=== PATIENT | female | born 1990 | race American Indian/Alaskan Native ===

== ENCOUNTER 2016-06-06 15:22 | Emergency (ER) | payer OTHER ==
[2016-06-06 16:29] VITALS: BP 106/68
[2016-06-06] MEDS ORDERED: TYLENOL PO ONE (19:52)
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
== END 2016-06-06 21:48 | disposition home or self-care (01) ==
LOC: ED 15:22
DX: R51 Headache (principal); M54.5 Low back pain; M54.6 Pain in thoracic spine; V89.2XXA Person injured in unspecified motor-vehicle accident, traffic, initial encounter; Y93.9 Activity, unspecified; Y99.9 Unspecified external cause status; Y92.410 Unspecified street and highway as the place of occurrence of the external cause
CPT/HCPCS: 70450; 72125; 81025

== ENCOUNTER 2017-08-25 10:51 | Emergency (ER) | payer MEDICAID, OTHER ==
[2017-08-25 11:08] VITALS: BP 114/71
[2017-08-25 11:41] LABS: Bacteria,Urine 1+ /HPF (Negative); Bilirubin,Urine NEG (Negative); Blood,Urine LG (Negative); Color,Urine Yellow (Yellow); Mucus,Urine FEW /HPF; Protein,Urine <15 mg/dL mg/dL (Negative); Urobilinogen,Urine < 2.0 mg/dL (<2.0)
--- NOTE | 2017-08-25 13:07 | Emergency Department Report ---
ED Female HPI - General Chief complaint: Urogenital-Female Stated complaint: /SPOTTING Time Seen by Provider: 08/25/17 12:45 Source: patient Mode of arrival: Ambulatory Limitations: No Limitations - History of Present Illness Initial comments: This is a 27-year-old female nontoxic, well nourished in appearance, no acute signs of distress presents to the ED with c/o of vaginal spotting and vaginal bleeding x2 days. Patient stated that when she wipes she also sees blood in her urine. Patient is unaware if its vaginal bleeding or urinary bleeding. Patient also stated she is 6 weeks and has followed up with OBGYN but denies ever getting a ultrasound. Patient stated has abdominal cramping but denies any radiation of pain. Patient denies any urinary frequency or dysuria. Patient denies any nausea, vomiting, chest pain, shortness breathe, fever, chills, headache, back pain. Patient denies any allergies or PMH. MD Complaint: vaginal bleeding, other (hematuria) -: days(s) (2) Radiation: non-radiating Severity: mild Severity scale (0 -10): 3 Quality: cramping Consistency: constant Improves with: none Worsens with: none Are you Now?: Yes Last Menstrual Period: 07/08/17 EDC: 04/14/18 Associated Symptoms: vaginal bleeding, hematuria. denies: vaginal discharge, abdominal pain, nausea/vomiting, fever/chills, headaches, loss of appetite, dysuria, rash, seizure, shortness of breath, syncope, weakness - Related Data Previous Rx's Medication Instructions Recorded Last Taken Type Naproxen [Naprosyn] 500 mg PO BID #30 tablet 09/09/13 Unknown Rx methOCARBAMOL [Robaxin] 500 mg PO BID #30 tab 09/09/13 Unknown Rx traMADol [Ultram 50 MG tab] 50 mg PO Q6HR PRN #30 tablet 09/09/13 Unknown Rx Cyclobenzaprine [Flexeril] 10 mg PO TID PRN #15 tablet 06/06/16 Unknown Rx Ibuprofen [Motrin] 600 mg PO Q8H PRN #25 tablet 06/06/16 Unknown Rx Acetaminophen 500 mg PO Q8H PRN #30 tablet 08/25/17 Unknown Rx Allergies Allergy/AdvReac Type Severity Reaction Status Date / Time No Known Allergies Allergy Unverified 09/09/13 12:40 ED Review of Systems ROS: Stated complaint: /SPOTTING Other details as noted in HPI Constitutional: denies: chills, fever Eyes: denies: eye pain, eye discharge, vision change ENT: denies: ear pain, throat pain Respiratory: denies: cough, shortness of breath, wheezing Cardiovascular: denies: chest pain, palpitations Endocrine: no symptoms reported Gastrointestinal: denies: abdominal pain, nausea, diarrhea Genitourinary: hematuria. denies: urgency, dysuria, discharge Musculoskeletal: denies: back pain, joint swelling, arthralgia Skin: denies: rash, lesions Neurological: denies: headache, weakness, paresthesias Psychiatric: denies: anxiety, depression Hematological/Lymphatic: denies: easy bleeding, easy bruising ED Past Medical Hx - Past Medical History Previous Medical History?: No - Surgical History Past Surgical History?: No - Social History Smoking Status: Never Smoker Substance Use Type: None - Medications Home Medications: Home Medications Medication Instructions Recorded Confirmed Last Taken Type Naproxen [Naprosyn] 500 mg PO BID #30 tablet 09/09/13 Unknown Rx methOCARBAMOL [Robaxin] 500 mg PO BID #30 tab 09/09/13 Unknown Rx traMADol [Ultram 50 MG tab] 50 mg PO Q6HR PRN #30 tablet 09/09/13 Unknown Rx Cyclobenzaprine [Flexeril] 10 mg PO TID PRN #15 tablet 06/06/16 Unknown Rx Ibuprofen [Motrin] 600 mg PO Q8H PRN #25 tablet 06/06/16 Unknown Rx Acetaminophen 500 mg PO Q8H PRN #30 tablet 08/25/17 Unknown Rx ED Physical Exam - General Limitations: No Limitations General appearance: alert, in no apparent distress - Head Head exam: Present: atraumatic, normocephalic - Eye Eye exam: Present: normal appearance Pupils: Present: normal accommodation - ENT ENT exam: Present: normal exam, mucous membranes moist - Neck Neck exam: Present: normal inspection, full ROM. Absent: tenderness, meningismus, lymphadenopathy - Respiratory Respiratory exam: Present: normal lung sounds bilaterally. Absent: respiratory distress, wheezes, rales, rhonchi, stridor - Cardiovascular Cardiovascular Exam: Present: regular rate, normal rhythm, normal heart sounds. Absent: bradycardia, tachycardia, irregular rhythm, systolic murmur, diastolic murmur, rubs, gallop - GI/Abdominal GI/Abdominal exam: Present: soft, normal bowel sounds. Absent: distended, tenderness, guarding, rebound, rigid, diminished bowel sounds - Rectal Rectal exam: Present: deferred - External exam: Present: normal external exam, bleeding, other (gallery host Cynthia OWENS present during exam). Absent: erythema, swelling, lesions, lacerations, ecchymosis Speculum exam: Present: normal speculum exam, vaginal bleeding, other ( gallery host Cynthia RN present during exam). Absent: erythema, vaginal discharge, cervical discharge, foreign body, tissue, laceration Bi-manual exam: Present: normal bi-manual exam, other (gallery host Cynthia RN present during exam). Absent: cervical motion tendernes, adnexal tenderness, adnexal mass, uterine enlargement, uterine tenderness - Extremities Exam Extremities exam: Present: normal inspection, full ROM, normal capillary refill - Back Exam Back exam: Present: normal inspection, full ROM. Absent: tenderness, CVA tenderness (R), CVA tenderness (L), paraspinal tenderness, vertebral tenderness - Neurological Exam Neurological exam: Present: alert, oriented X3, normal gait - Psychiatric Psychiatric exam: Present: normal affect, normal mood - Skin Skin exam: Present: warm, dry, intact, normal color. Absent: rash ED Course Vital Signs 08/25/17 11:03 Temperature 97.9 F Pulse Rate 84 Respiratory 16 Rate Blood Pressure 114/71 O2 Sat by Pulse 98 Oximetry - Reevaluation(s) Reevaluation #1: 08/25/17 13:08 Patient is speaking in full sentences with no signs of distress noted. ED Medical Decision Making - Lab Data Result diagrams: 08/25/17 13:19 08/25/17 13:19 - Medical Decision Making This is a 27-year-old female presents with threatened miscarriage. Patient is stable and was examined by me. Pelvic exam with chaprone present and has a positive vaginal bleeding. Normal abdominal exam. US OB obtained and dictated by the radiologist. Quantative serum test obtained. Patient notified of the US report with no questions noted by the patient. Patient was instructed to f/o in 2 days with a ENCODING CLERK or to emergency room for a reevaluation of serum quantative test with possible ultrasound. RH factor positive. Labs within normal limits. Patient was referred to Follow-up with a ENCODING CLERK in 3-5 days or if symptoms worsen and continue return to emergency room as soon as possible. At time of discharge, the patient does not seem toxic or ill in appearance. No acute signs of distress noted. Patient agrees to discharge treatment plan of care. No further questions noted by the patient. Critical care attestation.: If time is entered above; I have spent that time in minutes in the direct care of this critically ill patient, excluding procedure time. ED Disposition Clinical Impression: Threatened miscarriage Disposition: DC- TO HOME OR SELFCARE Is pt being admited?: No Does the pt Need Aspirin: No Condition: Stable Instructions: Threatened Miscarriage (ED) Additional Instructions: Follow up in 2 days with a ENCODING CLERK or to emergency room for a reevaluation of serum quantative test with possible ultrasound or if symptoms worsen and continue return to emergency room as soon as possible. Prescriptions: Acetaminophen 500 mg PO Q8H PRN #30 tablet PRN Reason: Pain Referrals: PRIMARY [facility] [Primary Care Provider] - 3-5 Days NATALIIA GRAFF MD [Staff Physician] - 3-5 Days [facility] [Provider Group] - 3-5 Days [facility] [Outside] - 3-5 Days [facility] [Outside] - 3-5 Days Forms: Work/School Release Form(ED)
[2017-08-25 13:33] LABS: Hemoglobin 12.6 gm/dl (10.1-14.3); Mean Corpuscular HGB Conc 32 % (30-34); Mean Corpuscular Hemoglobin 27 pg (28-32); Mean Corpuscular Volume 84 fl (79-97); Platelet Count 196 K/mm3 (140-440); Red Blood Count 4.63 M/mm3 (3.65-5.03); Red Cell Distribution Width 15.9 % (13.2-15.2)
[2017-08-25 13:50] LABS: BUN/Creatinine Ratio 12; Blood Urea Nitrogen 6 mg/dL (7-17); Calcium 9.1 mg/dL (8.4-10.2); Hemolysis Index 18
--- NOTE | 2017-08-25 15:37 | Ultrasound Report ---
FINAL REPORT PROCEDURE: US OB transabdominal and TRANSVAGINAL TECHNIQUE: Real-time transabdominal and transvaginal sonography of the uterus, placenta, amniotic fluid, adnexa, and fetus was performed with image documentation. Measurements were obtained to determine age/size. M-mode Doppler was used to document heartbeat. CPT 07345 and 50506 HISTORY: vag spotting, COMPARISON: No prior studies are available for comparison. FINDINGS: ADDITIONAL GESTATION: None. CRL: 15.7 mm, which corresponds to a gestational age of: 8 weeks, 0 days. Yolk Sac: Normal. Embryonic Cardiac Activity: 158 beats per minute Gestational Sac: There is a crescentic hypoechoic area adjacent to the gestational sac, measuring 2.8 x 0.7 x 2.5 centimeters, compatible with a small area of subchorionic hemorrhage Amniotic fluid: Normal. Cervix: Normal. Right Ovary: 2.5 centimeter complex cystic structure is present Left Ovary: Normal. Estimated delivery date: 04/06/2018 No free fluid is seen IMPRESSION: 1. Single live intrauterine gestation at approximately 8 weeks, 0 days. 2. EDC by US 04/06/2018 3. Complete anatomic survey at 18-20 weeks suggested. 4. Small subchorionic hemorrhage
--- NOTE | 2017-08-25 15:37 | Ultrasound Report ---
FINAL REPORT PROCEDURE: PROCEDURE: US OB transabdominal and TRANSVAGINAL TECHNIQUE: Real-time transabdominal and transvaginal sonography of the uterus, placenta, amniotic fluid, adnexa, and fetus was performed with image documentation. Measurements were obtained to determine age/size. M-mode Doppler was used to document heartbeat. CPT 62582 and 51526 HISTORY: vag spotting, COMPARISON: No prior studies are available for comparison. FINDINGS: ADDITIONAL GESTATION: None. CRL: 15.7 mm, which corresponds to a gestational age of: 8 weeks, 0 days. Yolk Sac: Normal. Embryonic Cardiac Activity: 158 beats per minute Gestational Sac: There is a crescentic hypoechoic area adjacent to the gestational sac, measuring 2.8 x 0.7 x 2.5 centimeters, compatible with a small area of subchorionic hemorrhage Amniotic fluid: Normal. Cervix: Normal. Right Ovary: 2.5 centimeter complex cystic structure is present Left Ovary: Normal. Estimated delivery date: 04/06/2018 No free fluid is seen IMPRESSION: 1. Single live intrauterine gestation at approximately 8 weeks, 0 days. 2. EDC by US 04/06/2018 3. Complete anatomic survey at 18-20 weeks suggested. 4. Small subchorionic hemorrhage TECHNIQUE: HISTORY: COMPARISON: FINDINGS: IMPRESSION:
== END 2017-08-25 16:31 | disposition home or self-care (01) ==
LOC: ED 10:51
DX: O20.0 Threatened abortion (principal); Z3A.01 Less than 8 weeks gestation of pregnancy
CPT/HCPCS: 36415; 76801; 76817; 80048; 81001; 84702; 85027; 86900; 86901; 99284

== ENCOUNTER 2017-12-25 14:04 | Outpatient (CLI) | payer MEDICAID, OTHER ==
[2017-12-25 15:38] VITALS: BP 122/80
[2017-12-25 18:46] LABS: Hematocrit 38.4 % (30.3-42.9); Hemoglobin 12.6 gm/dl (10.1-14.3); Mean Corpuscular HGB Conc 33 % (30-34); Mean Corpuscular Hemoglobin 29 pg (28-32); Mean Corpuscular Volume 90 fl (79-97); Platelet Count 191 K/mm3 (140-440); Red Blood Count 4.29 M/mm3 (3.65-5.03); Red Cell Distribution Width 14.1 % (13.2-15.2)
--- NOTE | 2017-12-25 19:13 | Ultrasound Report ---
FINAL REPORT PROCEDURE: US OB > = 14 WEEKS FETUS TECHNIQUE: Real-time transabdominal sonography of the uterus, placenta, amniotic fluid, adnexa, and fetus was performed with image documentation. Measurements were obtained to determine age/size. M-mode Doppler was used to document heartbeat. CPT 57028 HISTORY: SEVERE LOWER ABDOMINAL PAIN AND RIGHT SIDED PAIN COMPARISON: 08/25/2017 FINDINGS: ADDITIONAL GESTATION: None. GENERAL: IUP: Single living intrauterine . Position: Cephalic Placental position: Anterior and grade 1, without previa. Small 1.7 centimeter nonspecific hypoechoic area seen within the placenta. Amniotic fluid volume: 14.7 centimeters MATERNAL: Uterus: Within normal limits. Cervical length: 3.7 cm. Internal Os: No obvious funneling is seen. Internal os is not well resolved with transabdominal technique FETUS: Heart rate and rhythm: 152 BPM, Regular. anatomic survey: Fluid containing urinary bladder, anterior abdominal wall cord insertion, kidneys, fluid containing stomach, diaphragm, four-chamber view of the heart, 3 vessel cord, visualized portions of the spine are unremarkable MEASUREMENTS: BPD: 6.4 centimeters, 25 weeks 6 days HC: 23.4 centimeters, 25 weeks 3 days AC: 20.6 centimeters, 25 weeks 1 day FL: 4.7 centimeters, 25 weeks 2 days Mean Gestational Age (composite criteria): 25 weeks 3 days Ratio biometry: Normal. Estimated Weight: 790 grams. Interval growth: Appropriate. Estimated Due Date (earliest scan): 04/06/2018 IMPRESSION: Single intrauterine gestation at 25 weeks, 3 days. Estimated due date: 04/06/2018. Normal survey with appropriate growth.
[2017-12-25] MEDS ORDERED: LACTATED RINGERS 500 ML IV ONE (19:59)
== END 2017-12-25 19:05 | disposition home or self-care (01) ==
LOC: TRG 14:04
PROVIDERS: ATTEND Obstetrics & Gynecology
DX: O47.03 False labor before 37 completed weeks of gestation, third trimester (principal); Z3A.25 25 weeks gestation of pregnancy
CPT/HCPCS: 36415; 59025; 76805; 82731; 85027

== ENCOUNTER 2018-04-14 04:40 | Inpatient (IN) | payer OTHER ==
[2018-04-14] MEDS ORDERED: AMPICILLIN/NS 2 GM/100 ML 2 GM/100 ML BAG IV ONE (06:11)
[2018-04-14] MEDS ORDERED: BRETHINE SUB-Q PRN (06:11)
[2018-04-14] MEDS ORDERED: MINERAL OIL PO PRN (06:11)
[2018-04-14] MEDS ORDERED: XYLOCAINE 2% INFILTRATI ONE (06:11)
[2018-04-14] MEDS ORDERED: SUBLIMAZE IV PRN (06:11)
--- NOTE | 2018-04-14 06:19 | History and Physical Report ---
History of Present Illness Date of examination: 04/14/18 Date of admission: 04/14/2018 Chief complaint: Contractions History of present illness: 27 year old presents to L&D with contractions every 3-4 minutes. Patient denies leaking of fluid. She reports small amount of bloody show. Patient reports active movement. LMP 07/08/2017. EDC 04/14/2018. EGA 40 weeks. Patient received care at [facility] and records are available. significant for the following: GBS positive (in urine); chlamydia (treated and GEORGE negative); genital herpes (on Valtrex suppression and denies lesions or prodromal symptoms); LSIL/susp. HSIL pap (had colpo); mycoplasma on genital culture (treated); Vitamin D deficiency (supplemented with Vitamin D). 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 denies: gonorrhea, hepatitis B, hepatitis C, HIV, syphilis Family/Genetic History: diabetes, hypertension, cancer Social history: single, lives with family, full code. denies: smoking, alcohol abuse, prescription drug abuse, IV drug use - Obstetrical History Expected Date of Delivery: 04/14/18 Actual Gestation: 40 Week(s) 0 Day(s) : 3 Para: 1 Hx # Term Pregnancies: 2 Number of Pregnancies: 0 Spontaneous Abortions: 1 Induced : 0 Number of Living Children: 1 Medications and Allergies Allergies Allergy/AdvReac Type Severity Reaction Status Date / Time No Known Allergies Allergy Verified 03/12/18 07:50 Home Medications Medication Instructions Recorded Confirmed Last Taken Type Pnv No.95/Ferrous Fum/Folic AC 1 tab PO QDAY 03/12/18 04/09/18 04/08/18 History [ Vitamins Tablet] valACYclovir [Valtrex] 1 tab PO QDAY 03/12/18 04/09/18 04/08/18 History Active Meds: Active Medications Ephedrine Sulfate (Ephedrine Sulfate) 10 mg IV Q2M PRN PRN Reason: Hypotension Fentanyl (Sublimaze) 100 mcg IV Q2H PRN PRN Reason: Labor Pain Ampicillin Sodium (Polycillin/Ns 2 Gm/100 Ml) 2 gm in 100 mls @ 100 mls/hr IV ONCE ONE; Protocol Stop: 04/14/18 07:10 Lactated Ringer's (Lactated Ringers) 1,000 mls @ 125 mls/hr IV DIRECT DON Oxytocin/Sodium Chloride (Pitocin/Ns 20 Unit/1000ml Drip) 20 units in 1,000 mls @ 125 mls/hr IV DIRECT DON Lidocaine (Xylocaine 2%) 20 ml INFILTRATI ONCE ONE Stop: 04/14/18 06:12 Mineral Oil (Mineral Oil) 30 ml PO QHS PRN PRN Reason: Constipation Terbutaline Sulfate (Brethine) 0.25 mg SUB-Q ONCE PRN PRN Reason: Hyperstimulation/Hypertonicity Review of Systems All systems: negative (contractions and bloody show) - Vital Signs Vital signs: Vital Signs Pulse BP 89 112/68 04/14/18 05:02 04/14/18 05:02 Temp Pulse Resp BP Pulse Ox 89 112/68 04/14/18 05:02 04/14/18 05:02 - Physical Exam Abdomen: Positive: normal appearance, soft. Negative: distention, tenderness, guarding, rigidity Genitourinary (Female): Positive: normal external genitalia, normal perenium. Negative: perineal/vulvar lesions (no lesions seen on careful exam upon admission) Vagina: Positive: normal moisture Uterus: Positive: enlarged. Negative: tender (size=dates) Anus/Rectum: Positive: normal perianal skin Extremities: Positive: normal, edema (mild pedal edema bilaterally). Negative: tenderness - Obstetrical FHR: category 1 Uterine Contraction Monitor Mode: External Cervical Dilatation: 4 Cervical Effacement Percentage: 70 station: -3 Uterine Contraction Pattern: Regular Uterine Contraction Intensity: Moderate Results All other labs normal. Assessment and Plan A: at 40 weeks gestation. Labor. GBS positive. HSV 2 positive, on Valtrex suppression, and without active lesions or prodromal symptoms. P: Admit for labor. EFM. GBS prophylaxis. Continue Valtrex suppression of HSV.
[2018-04-14] MEDS ORDERED: PITOCin/NS 20 UNIT/1000ML DRIP 20 UNITS/1,000 ML BAG IV SCH ×3 (07:00→21:00)
[2018-04-14 07:51] LABS: Hematocrit 39.1 % (30.3-42.9); Mean Corpuscular HGB Conc 33 % (30-34); Mean Corpuscular Volume 87 fl (79-97); Platelet Count 194 K/mm3 (140-440); Red Blood Count 4.51 M/mm3 (3.65-5.03); Red Cell Distribution Width 14.2 % (13.2-15.2)
[2018-04-14] MEDS: LACTATED RINGERS 1,000 ML IV SCH ×3 (08:42→14:44)
[2018-04-14] MEDS ORDERED: NARCAN 2 MG/2 ML IV PRN (09:42)
[2018-04-14] MEDS: fentaNYL-BUPIV 2 MCG/ML-0.125% 200 MCG/100 ML BAG EPIDURAL SCH ×2 (10:45→17:42)
[2018-04-14] MEDS ORDERED: PITOCin/NS 30 UNIT/500ML 30 UNITS/500 ML BAG IV SCH (11:00)
[2018-04-14] MEDS: AMPICILLIN/NS 1 GM/50 ML 1 GM/50 ML BAG IV SCH ×2 (11:41→16:05)
[2018-04-14] MEDS: VALTREX PO SCH (11:50)
--- NOTE | 2018-04-14 14:08 | Progress Note ---
Assessment and Plan - Patient Problems (1) 40 weeks gestation of Current Visit: Yes Status: Acute (2) Active labor at term Current Visit: Yes Status: Acute Plan to address problem: Continue current management AROM @ 13:50, light meconium, moderate amount Anticipate vaginal delivery (3) Group B streptococcal infection during Current Visit: Yes Status: Acute Plan to address problem: Continue antibiotics therapy Subjective - Subjective Date of service: 04/14/18 Principal diagnosis: IUP @ 40 weeks, Active Labor Interval history: Epidural in place Patient reports: movement normal, no new complaints Objective - Vital Signs Vital Signs: Vital Signs - 12hr 04/14/18 04/14/18 04/14/18 05:02 07:01 07:51 Temperature 97.7 F Pulse Rate 89 99 H Respiratory 17 Rate Blood Pressure 112/68 130/68 O2 Sat by Pulse Oximetry 04/14/18 04/14/18 04/14/18 08:22 09:19 09:45 Temperature Pulse Rate 96 H 86 97 H Respiratory Rate Blood Pressure 117/81 131/69 O2 Sat by Pulse 100 Oximetry 04/14/18 04/14/18 04/14/18 09:49 09:50 09:55 Temperature Pulse Rate 100 H 107 H 99 H Respiratory Rate Blood Pressure 125/73 O2 Sat by Pulse 100 100 Oximetry 04/14/18 04/14/18 04/14/18 10:00 10:10 10:17 Temperature Pulse Rate 118 H 129 H 108 H Respiratory Rate Blood Pressure 144/63 O2 Sat by Pulse 99 99 Oximetry 04/14/18 04/14/18 04/14/18 10:18 10:21 10:23 Temperature Pulse Rate 98 H 109 H 104 H Respiratory Rate Blood Pressure 125/61 O2 Sat by Pulse 99 98 Oximetry 04/14/18 04/14/18 04/14/18 10:25 10:28 10:29 Temperature Pulse Rate 105 H 102 H 96 H Respiratory Rate Blood Pressure 122/63 121/63 O2 Sat by Pulse 98 Oximetry 04/14/18 04/14/18 04/14/18 10:33 10:38 10:43 Temperature Pulse Rate 94 H 89 96 H Respiratory Rate Blood Pressure O2 Sat by Pulse 98 99 100 Oximetry 04/14/18 04/14/18 04/14/18 10:48 10:53 10:58 Temperature Pulse Rate 85 89 99 H Respiratory Rate Blood Pressure O2 Sat by Pulse 99 99 98 Oximetry 04/14/18 04/14/18 04/14/18 11:03 11:08 11:13 Temperature Pulse Rate 91 H 90 92 H Respiratory Rate Blood Pressure O2 Sat by Pulse 99 97 99 Oximetry 04/14/18 04/14/18 04/14/18 11:18 11:23 11:28 Temperature Pulse Rate 92 H 98 H 94 H Respiratory Rate Blood Pressure O2 Sat by Pulse 99 98 98 Oximetry 04/14/18 04/14/18 04/14/18 11:30 11:33 11:34 Temperature 97.8 F Pulse Rate 92 H 91 H Respiratory Rate Blood Pressure 127/60 O2 Sat by Pulse 99 Oximetry 04/14/18 04/14/18 04/14/18 11:38 11:43 11:48 Temperature Pulse Rate 118 H 94 H 100 H Respiratory Rate Blood Pressure O2 Sat by Pulse 98 98 99 Oximetry 04/14/18 04/14/18 04/14/18 11:53 11:58 12:03 Temperature Pulse Rate 94 H 96 H 87 Respiratory Rate Blood Pressure O2 Sat by Pulse 99 99 99 Oximetry 04/14/18 04/14/18 04/14/18 12:04 12:08 12:13 Temperature Pulse Rate 86 82 87 Respiratory Rate Blood Pressure 120/71 O2 Sat by Pulse 100 99 Oximetry 04/14/18 04/14/18 04/14/18 12:18 12:23 12:28 Temperature Pulse Rate 91 H 89 90 Respiratory Rate Blood Pressure O2 Sat by Pulse 99 99 99 Oximetry 04/14/18 04/14/18 04/14/18 12:33 12:34 12:38 Temperature Pulse Rate 91 H 91 H 92 H Respiratory Rate Blood Pressure 122/70 O2 Sat by Pulse 99 100 Oximetry 04/14/18 04/14/18 04/14/18 12:43 12:48 12:53 Temperature Pulse Rate 94 H 90 84 Respiratory Rate Blood Pressure O2 Sat by Pulse 99 100 99 Oximetry 04/14/18 04/14/18 04/14/18 12:58 13:03 13:08 Temperature Pulse Rate 88 88 99 H Respiratory Rate Blood Pressure O2 Sat by Pulse 99 99 99 Oximetry 04/14/18 04/14/18 04/14/18 13:13 13:18 13:23 Temperature Pulse Rate 89 95 H 94 H Respiratory Rate Blood Pressure O2 Sat by Pulse 99 100 98 Oximetry 04/14/18 04/14/18 04/14/18 13:28 13:33 13:34 Temperature Pulse Rate 95 H 98 H 95 H Respiratory Rate Blood Pressure 124/69 O2 Sat by Pulse 99 100 Oximetry 04/14/18 04/14/18 04/14/18 13:38 13:42 13:44 Temperature Pulse Rate 100 H 104 H 88 Respiratory Rate Blood Pressure O2 Sat by Pulse 100 87 100 Oximetry 04/14/18 04/14/18 13:53 13:58 Temperature Pulse Rate 96 H 98 H Respiratory Rate Blood Pressure O2 Sat by Pulse 97 100 Oximetry - Exam FHR: category 2 FHR comments: baseline 130, moderate variability, +accels, variable decels Uterine Contraction Monitor Mode: External Cervical Dilatation: 6 Cervical Effacement Percentage: 90 station: -1 Uterine Contraction Frequency (min): 2-3 Uterine Contraction Pattern: Regular - Labs Labs: Abnormal Labs 04/14/18 07:15 WBC 12.5 H Laboratory Results - last 24 hr 04/14/18 04/14/18 04/14/18 07:15 07:15 08:58 WBC 12.5 H RBC 4.51 Hgb 13.0 Hct 39.1 MCV 87 MCH 29 MCHC 33 RDW 14.2 Plt Count 194 RPR Nonreactive Blood Type B POSITIVE Antibody Screen Negative
[2018-04-14] MEDS ORDERED: BENADRYL IV ONE (16:57)
[2018-04-14] MEDS ORDERED: NACL 0.9% 1000 ML 1,000 ML VG SCH (17:00)
[2018-04-14] MEDS ORDERED: XYLOCAINE MPF 2% ONE ×2 (17:27→18:35)
--- NOTE | 2018-04-14 17:39 | Anesthesia Consultation ---
Anesthesia Consult and Med Hx - Airway Anesthetic Teeth Evaluation: Good ROM Head & Neck: Adequate Mental/Hyoid Distance: Adequate Mallampati Class: Class II Intubation Access Assessment: Probably Good - Pulmonary Exam CTA: Yes - Cardiac Exam Cardiac Exam: RRR - Pre-Operative Health Status ASA Pre-Surgery Classification: ASA2 Proposed Anesthetic Plan: Epidural, Spinal - Pulmonary Hx Asthma: No - Cardiovascular System Hx Hypertension: No - Central Nervous System Hx Seizures: No Hx Psychiatric Problems: No - Endocrine Hx Renal Disease: No Hx Hypothyroidism: No Hx Hyperthyroidism: No - Hematic Hx Anemia: No Hx Sickle Cell Disease: No - Other Systems Hx Alcohol Use: No Hx Obesity: Yes
[2018-04-14] MEDS ORDERED: REGLAN IV SCH (18:13)
[2018-04-14] MEDS ORDERED: PEPCID IV SCH (18:13)
--- NOTE | 2018-04-14 18:17 | Event Note ---
Date: 04/14/18 Received a call from Ashli OWENS that the patient is 8cm. Upon my arrival, the patient was 6-7cm and -1 station; cervical swelling noted. Patient reports pressure but denies pushing. FHR 125, moderate variability, +accels, variable/late decels. Pt in left lateral position. Oxygen in place via NR mask. IUPC inserted and amnioinfusion initiated. Dr. Benson called for bedside evaluation.
--- NOTE | 2018-04-14 18:19 | Progress Note ---
Assessment and Plan - Patient Problems (1) 40 weeks gestation of Current Visit: Yes Status: Acute (2) Active labor at term Current Visit: Yes Status: Acute (3) Failure to progress in labor Current Visit: Yes Status: Acute (4) Non-reassuring electronic monitoring tracing Current Visit: Yes Status: Acute Plan to address problem: I discussed the above findings with the patient. I told her that she needs to be delivered via C/section. The risks, benefits, and alternatives of the procedure were discussed in detail with the patient which included but not limited to risk of infection, hemorrhage requiring blood transfusion, injury to bowel or bladder and blood vessels. The patient expressed understanding, her questions were answered and she gave informed consent. Anesthesia has been notified. Keep patient NPO. Continue monitoring. Subjective - Subjective Date of service: 04/14/18 Principal diagnosis: IUP @ 40 weeks, Active Labor Interval history: Patient is a 27 year old who is at 40 weeks gestation who was admitted earlier today in active labor. AROM was performed at 10 AM with meconium fluid. Patient was later augmented with pitocin. She developed variables which recovered to baseline after pitocin was discontinued. Amnioinfusion was given and pitocin was later restarted. I was called to evaluate the patient by the highway administrative engineer for failure to dilate past 6 cm. I found the patient lying in bed and she complains of minimal discomfort with each contraction. Patient has an epidural for pain management. [place]: Q2 mins, FHT: 130's, no accelerations, minimal variability, ocacsaional variables. Cervix: 6 cm/80%/-2, adematous, caput. Patient reports: movement normal, no new complaints Objective - Vital Signs Vital Signs: Vital Signs - 12hr 04/14/18 04/14/18 04/14/18 07:01 07:51 08:22 Temperature 97.7 F Pulse Rate 99 H 96 H Respiratory 17 Rate Blood Pressure 130/68 117/81 O2 Sat by Pulse Oximetry 04/14/18 04/14/18 04/14/18 09:19 09:45 09:49 Temperature Pulse Rate 86 97 H 100 H Respiratory Rate Blood Pressure 131/69 125/73 O2 Sat by Pulse 100 Oximetry 04/14/18 04/14/18 04/14/18 09:50 09:55 10:00 Temperature Pulse Rate 107 H 99 H 118 H Respiratory Rate Blood Pressure O2 Sat by Pulse 100 100 99 Oximetry 04/14/18 04/14/18 04/14/18 10:10 10:17 10:18 Temperature Pulse Rate 129 H 108 H 98 H Respiratory Rate Blood Pressure 144/63 O2 Sat by Pulse 99 99 Oximetry 04/14/18 04/14/18 04/14/18 10:21 10:23 10:25 Temperature Pulse Rate 109 H 104 H 105 H Respiratory Rate Blood Pressure 125/61 122/63 O2 Sat by Pulse 98 Oximetry 04/14/18 04/14/18 04/14/18 10:28 10:29 10:33 Temperature Pulse Rate 102 H 96 H 94 H Respiratory Rate Blood Pressure 121/63 O2 Sat by Pulse 98 98 Oximetry 04/14/18 04/14/18 04/14/18 10:38 10:43 10:48 Temperature Pulse Rate 89 96 H 85 Respiratory Rate Blood Pressure O2 Sat by Pulse 99 100 99 Oximetry 04/14/18 04/14/18 04/14/18 10:53 10:58 11:03 Temperature Pulse Rate 89 99 H 91 H Respiratory Rate Blood Pressure O2 Sat by Pulse 99 98 99 Oximetry 04/14/18 04/14/18 04/14/18 11:08 11:13 11:18 Temperature Pulse Rate 90 92 H 92 H Respiratory Rate Blood Pressure O2 Sat by Pulse 97 99 99 Oximetry 04/14/18 04/14/18 04/14/18 11:23 11:28 11:30 Temperature 97.8 F Pulse Rate 98 H 94 H Respiratory Rate Blood Pressure O2 Sat by Pulse 98 98 Oximetry 04/14/18 04/14/18 04/14/18 11:33 11:34 11:38 Temperature Pulse Rate 92 H 91 H 118 H Respiratory Rate Blood Pressure 127/60 O2 Sat by Pulse 99 98 Oximetry 04/14/18 04/14/18 04/14/18 11:43 11:48 11:53 Temperature Pulse Rate 94 H 100 H 94 H Respiratory Rate Blood Pressure O2 Sat by Pulse 98 99 99 Oximetry 04/14/18 04/14/18 04/14/18 11:58 12:03 12:04 Temperature Pulse Rate 96 H 87 86 Respiratory Rate Blood Pressure 120/71 O2 Sat by Pulse 99 99 Oximetry 04/14/18 04/14/18 04/14/18 12:08 12:13 12:18 Temperature Pulse Rate 82 87 91 H Respiratory Rate Blood Pressure O2 Sat by Pulse 100 99 99 Oximetry 04/14/18 04/14/18 04/14/18 12:23 12:28 12:33 Temperature Pulse Rate 89 90 91 H Respiratory Rate Blood Pressure O2 Sat by Pulse 99 99 99 Oximetry 04/14/18 04/14/18 04/14/18 12:34 12:38 12:43 Temperature Pulse Rate 91 H 92 H 94 H Respiratory Rate Blood Pressure 122/70 O2 Sat by Pulse 100 99 Oximetry 04/14/18 04/14/18 04/14/18 12:48 12:53 12:58 Temperature Pulse Rate 90 84 88 Respiratory Rate Blood Pressure O2 Sat by Pulse 100 99 99 Oximetry 04/14/18 04/14/18 04/14/18 13:03 13:08 13:13 Temperature Pulse Rate 88 99 H 89 Respiratory Rate Blood Pressure O2 Sat by Pulse 99 99 99 Oximetry 04/14/18 04/14/18 04/14/18 13:18 13:23 13:28 Temperature Pulse Rate 95 H 94 H 95 H Respiratory Rate Blood Pressure O2 Sat by Pulse 100 98 99 Oximetry 04/14/18 04/14/18 04/14/18 13:33 13:34 13:38 Temperature Pulse Rate 98 H 95 H 100 H Respiratory Rate Blood Pressure 124/69 O2 Sat by Pulse 100 100 Oximetry 04/14/18 04/14/18 04/14/18 13:42 13:44 13:53 Temperature Pulse Rate 104 H 88 96 H Respiratory Rate Blood Pressure O2 Sat by Pulse 87 100 97 Oximetry 04/14/18 04/14/18 04/14/18 13:58 14:03 14:35 Temperature Pulse Rate 98 H 95 H 96 H Respiratory Rate Blood Pressure 128/73 O2 Sat by Pulse 100 100 Oximetry 04/14/18 04/14/18 04/14/18 15:00 15:05 15:21 Temperature 98.2 F Pulse Rate 117 H 102 H Respiratory 18 Rate Blood Pressure 132/81 O2 Sat by Pulse 100 Oximetry 04/14/18 04/14/18 04/14/18 15:26 15:31 15:33 Temperature Pulse Rate 100 H 87 86 Respiratory Rate Blood Pressure 110/55 O2 Sat by Pulse 100 100 Oximetry 01/10/2404/14/18 04/14/18 15:36 15:41 15:46 Temperature Pulse Rate 90 83 86 Respiratory Rate Blood Pressure O2 Sat by Pulse 100 100 100 Oximetry 04/14/18 04/14/18 04/14/18 15:51 15:56 16:01 Temperature Pulse Rate 91 H 94 H 99 H Respiratory Rate Blood Pressure O2 Sat by Pulse 100 100 100 Oximetry 04/14/18 04/14/18 04/14/18 16:03 16:06 16:11 Temperature Pulse Rate 86 92 H 85 Respiratory Rate Blood Pressure 115/68 O2 Sat by Pulse 100 100 Oximetry 04/14/18 04/14/18 04/14/18 16:16 16:21 16:26 Temperature Pulse Rate 84 98 H 86 Respiratory Rate Blood Pressure O2 Sat by Pulse 100 100 100 Oximetry 04/14/18 04/14/18 04/14/18 16:31 16:33 16:36 Temperature Pulse Rate 86 86 82 Respiratory Rate Blood Pressure 111/66 O2 Sat by Pulse 100 100 Oximetry 04/14/18 04/14/18 04/14/18 17:03 17:31 17:32 Temperature Pulse Rate 90 100 H 104 H Respiratory Rate Blood Pressure 127/75 143/79 O2 Sat by Pulse 100 Oximetry 04/14/18 04/14/18 04/14/18 17:35 17:37 17:38 Temperature Pulse Rate 99 H 95 H 93 H Respiratory Rate Blood Pressure 141/69 126/68 O2 Sat by Pulse 100 Oximetry 04/14/18 04/14/18 04/14/18 17:41 17:42 17:44 Temperature Pulse Rate 96 H 95 H 96 H Respiratory Rate Blood Pressure 116/72 117/67 O2 Sat by Pulse 100 Oximetry 04/14/18 04/14/18 04/14/18 17:45 17:47 17:52 Temperature 97.7 F Pulse Rate 98 H 111 H Respiratory 17 Rate Blood Pressure O2 Sat by Pulse 100 100 Oximetry 04/14/18 04/14/18 04/14/18 17:57 18:02 18:07 Temperature Pulse Rate 98 H 103 H 107 H Respiratory Rate Blood Pressure O2 Sat by Pulse 100 100 100 Oximetry 04/14/18 18:12 Temperature Pulse Rate 104 H Respiratory Rate Blood Pressure O2 Sat by Pulse 100 Oximetry - Exam Cardiovascular: Normal S1, Normal S2 Lungs: Clear to auscultation Vulva: both: normal FHR: category 2 Uterine Contraction Monitor Mode: Internal Cervical Dilatation: 6 Cervical Effacement Percentage: 80 station: -2 Uterine Contraction Pattern: Regular Uterine Contraction Intensity: Strong/Firm Deep Tendon Reflex Grade: Normal +2 - Labs Labs: Abnormal Labs 04/14/18 07:15 WBC 12.5 H Laboratory Results - last 24 hr 04/14/18 04/14/18 04/14/18 07:15 07:15 08:58 WBC 12.5 H RBC 4.51 Hgb 13.0 Hct 39.1 MCV 87 MCH 29 MCHC 33 RDW 14.2 Plt Count 194 RPR Nonreactive Blood Type B POSITIVE Antibody Screen Negative - Results US- obstetric: report reviewed
[2018-04-14] MEDS ORDERED: PEPCID IV ONE (18:21)
[2018-04-14] MEDS ORDERED: SUBLIMAZE ONE ×2 (18:35→20:05)
[2018-04-14] MEDS ORDERED: ZOFRAN ONE (18:35)
[2018-04-14] MEDS ORDERED: ASTRAMORPH PF 10MG/10ML ONE (18:36)
[2018-04-14] MEDS ORDERED: BICITRA PO SCH (19:00)
[2018-04-14] MEDS ORDERED: LACTATED RINGERS 1,000 ML IV SCH (19:00)
[2018-04-14] MEDS ORDERED: ANCEF/STERILE WATER 2 GM/20 ML 2 GM/20 ML SYRINGE IV NR (19:00)
[2018-04-14] MEDS ORDERED: WATER FOR IRRIG STERILE IR ONE (19:15)
[2018-04-14] MEDS ORDERED: NACL 0.9% IR ONE (19:15)
[2018-04-14] MEDS ORDERED: METHERGINE IM ONE ×2 (19:38→23:25)
[2018-04-14] MEDS ORDERED: HEMABATE IM ONE ×2 (19:49→23:25)
[2018-04-14] MEDS ORDERED: KETALAR ONE (20:26)
[2018-04-14] MEDS ORDERED: ZOFRAN IV PRN (20:40)
[2018-04-14] MEDS ORDERED: SENOKOT PO PRN (20:40)
[2018-04-14] MEDS ORDERED: MYLICON PO PRN (20:40)
[2018-04-14] MEDS ORDERED: TYLENOL PO PRN (20:40)
[2018-04-14] MEDS ORDERED: TORADOL IV PRN (20:40)
[2018-04-14] MEDS ORDERED: TUCKS PAD TP PRN (20:40)
[2018-04-14] MEDS ORDERED: NARCAN 0.4 MG/1 ML IV PRN (20:40)
[2018-04-14] MEDS ORDERED: MORPHINE IV PRN ×2 (20:40)
[2018-04-14] MEDS ORDERED: LANSINOH TP PRN (20:40)
[2018-04-14] MEDS ORDERED: MILK OF MAGNESIA PO PRN (20:40)
--- NOTE | 2018-04-14 20:43 | Operative Report ---
Operative Report Operative Report: Preoperative diagnosis 1. SIUP at 40 weeks gestation in active labor. 2. Nonreassuring tracing. 3. Failure to dilate and descend. 4. Meconium amniotic fluid. Postoperative diagnosis: Same. Procedure: Primary low-transverse section. Surgeon: Dr. Benson Cadd Manager: none Anesthesia: epidural. IVF: RL 1400 cc. EBL: 900 cc. Urine: 200 cc clear. Complications: Intraoperative uterine atony responsive to IV Pitocin, IM methergine, and IM Hemabate. Intraoperative findings: 1. A male found in a direct occipito-posterior position, tight nuchal cord 1, delivered at 7:31 PM, Apgars of 8 at 1 minute and 9 at 5 minutes, weight 7 lbs 8 oz. 2. Normal fallopian tubes and ovaries bilaterally. Procedure details: Risks, benefits, and alternatives of the procedure were discussed in detail with the patient which included but not limited to the risk of infection, hemorrhage requiring blood transfusion, injury to the bowel or bladder and blood vessels. The patient expressed understanding, her questions were answered, and she gave informed consent. The patient was taken to the operating room with an IV fluid infusing Ringers lactate. In the operating room, she was placed in a dorsal supine position with a leftward tilt. She was loaded with epidural anesthesia. Looney catheter in Venodyne boots were placed. The abdomen was washed and she was prepared and draped in usual sterile fashion. After confirming adequate epidural anesthesia, a Pfannenstiel skin incision was made in the lower abdomen about 2 cm above the pubic symphysis using the scalpel. This incision was carried down to the underlying fascia using the Bovie. The fascia was opened bilaterally in a curvi linear fashion using the Bovie. 2 straight Kocker clamps were used to grasp the upper edge of the fascia from which the underlying rectus abdominis muscles was dissected off using the Bovie. A similar procedure was done with the lower edge of the fascia to dissect the underlying rectus abdominis muscle. The muscle was bluntly from the midline by pulling. The parietal peritoneum was g rasped with 2 hemostat clamps and entered sharply using Metzenbaum scissors. A quick survey of the anatomy revealed a gravid uterus, normal fallopian tubes and ovaries bilaterally. A bladder flap was created. Willie'O retractor was placed in the incision for proper visualization. A low transverse incision was made in the lower uterine segment using the scalpel and extended bilaterally in a cur vilinear fashion using bandage scissors. There was scant amount of meconium amniotic fluid as the membranes have been ruptured during the labor. The infant was found in a direst occipito-posterior position, the head was flexed and delivered atraumatically followed by the delivery of the shoulders and the rest of the body at 7:31 PM. There was tight nuchal cord 1 with compression. The cord was clamped 2 and cut and the infant was handed off to the waiting manager electronic. The was a male, Apgars were 9 at 1 minute and 9 at 5 minutes, weight was 7 pounds and 8 ounces. Cord blood was collected. The placenta was delivered manually and it was complete with a three-vessel cord. The uterine cavity was cleaned of clots and debris using dry lap sponges. There was uterine atony responsive to IV pitocin, IM methergine, IM hemabate. The uterine incision was repaired in a running locked fashion using 0 Vicryl sutures. A second layer of imbrication was placed. The gutters were cleaned of clots and debris using dry lap sponges. After confirming adequate hemostasis, the instruments were removed from the abdominal cavity. The rectus muscle was reapproximated in an interrupted fashion using 0 Vicryl sutures. The fascia was closed in a running fashion using 0 Vicryl sutures. The skin was closed with alan. Sterile dressing was placed. The counts of laps, needles, sponges, and instruments were correct 2. The patient tolerated the procedure well, she was taken to the recovery room in a stable condition.
[2018-04-14] MEDS ORDERED: SODIUM CHLORIDE FLUSH SYRINGE 10 ML IV PRN (21:00)
[2018-04-14] MEDS: TORADOL IV PRN (23:30)
--- NOTE | 2018-04-15 04:27 | Post Anesthesia Evaluation ---
- Post Anesthesia Evaluation Patient Participated: Yes Airway Patent: Yes Stable Respiratory Function: Yes Nausea/Vomiting: No Temp > 96.8F: Yes Pain Manageable: Yes Adequeate Hydration: Yes Anesthesia Complications: No Block Receding Appropriately: Yes Patient on Ventilator: Yes
[2018-04-15] MEDS: TORADOL IV PRN (06:16)
[2018-04-15 09:21] LABS: Hematocrit 28.5 % (30.3-42.9); Hemoglobin 9.3 gm/dl (10.1-14.3)
--- NOTE | 2018-04-15 10:08 | Progress Note ---
Assessment and Plan 1) S/P primary low transverse Current Visit: Yes Status: Acute Plan to address problem: POD 1 - stable Continue routine postop orders Ambulation encouraged, as tolerated Abdominal binder ordered prn Anticipate discharge in 24-48 hours Subjective - Subjective Date of service: 04/15/18 Principal diagnosis: POD#1 s/p Primary C/S Patient reports: appetite normal, voiding normally, pain well controlled, flatus, ambulating normally, no bowel movement [place]: doing well, bottle feeding Objective - Vital Signs Latest vital signs: Vital Signs Temp Pulse Resp BP Pulse Ox 04/15/18 07:50 98.9 F 116 H 20 105/54 96 04/15/18 05:01 99.2 F 129 H 20 130/69 96 04/15/18 01:06 99.0 F 107 H 20 125/61 97 04/14/18 22:00 97.8 F 110 H 21 132/74 99 04/14/18 21:45 114 H 14 120/73 99 04/14/18 21:30 109 H 19 105/72 98 04/14/18 21:15 108 H 22 121/70 97 04/14/18 21:00 111 H 22 125/65 96 04/14/18 20:55 116 H 22 129/64 96 04/14/18 20:49 99.2 F 122 H 20 125/69 98 04/14/18 18:46 99 H 132/74 04/14/18 18:30 98 F 04/14/18 18:15 101 H 135/68 04/14/18 18:12 104 H 100 04/14/18 18:07 107 H 100 04/14/18 18:02 103 H 100 04/14/18 17:57 98 H 100 04/14/18 17:52 111 H 100 04/14/18 17:47 98 H 100 04/14/18 17:45 97.7 F 17 04/14/18 17:44 96 H 117/67 04/14/18 17:42 95 H 100 04/14/18 17:41 96 H 116/72 04/14/18 17:38 93 H 126/68 04/14/18 17:37 95 H 100 04/14/18 17:35 99 H 141/69 04/14/18 17:32 104 H 100 04/14/18 17:31 100 H 143/79 04/14/18 17:03 90 127/75 04/14/18 16:36 82 100 04/14/18 16:33 86 111/66 04/14/18 16:31 86 100 04/14/18 16:26 86 100 04/14/18 16:21 98 H 100 04/14/18 16:16 84 100 04/14/18 16:11 85 100 04/14/18 16:06 92 H 100 04/14/18 16:03 86 115/68 04/14/18 16:01 99 H 100 04/14/18 15:56 94 H 100 04/14/18 15:51 91 H 100 04/14/18 15:46 86 100 04/14/18 15:41 83 100 04/14/18 15:36 90 100 04/14/18 15:33 86 110/55 04/14/18 15:31 87 100 04/14/18 15:26 100 H 100 04/14/18 15:21 102 H 100 04/14/18 15:05 117 H 132/81 04/14/18 15:00 98.2 F 18 04/14/18 14:35 96 H 128/73 04/14/18 14:03 95 H 100 04/14/18 13:58 98 H 100 04/14/18 13:53 96 H 97 04/14/18 13:44 88 100 04/14/18 13:42 104 H 87 04/14/18 13:38 100 H 100 04/14/18 13:34 95 H 124/69 04/14/18 13:33 98 H 100 04/14/18 13:28 95 H 99 04/14/18 13:23 94 H 98 04/14/18 13:18 95 H 100 04/14/18 13:13 89 99 04/14/18 13:08 99 H 99 04/14/18 13:03 88 99 04/14/18 12:58 88 99 04/14/18 12:53 84 99 04/14/18 12:48 90 100 04/14/18 12:43 94 H 99 04/14/18 12:38 92 H 100 04/14/18 12:34 91 H 122/70 04/14/18 12:33 91 H 99 04/14/18 12:28 90 99 04/14/18 12:23 89 99 04/14/18 12:18 91 H 99 04/14/18 12:13 87 99 04/14/18 12:08 82 100 04/14/18 12:04 86 120/71 04/14/18 12:03 87 99 04/14/18 11:58 96 H 99 04/14/18 11:53 94 H 99 04/14/18 11:48 100 H 99 04/14/18 11:43 94 H 98 04/14/18 11:38 118 H 98 04/14/18 11:34 91 H 127/60 04/14/18 11:33 92 H 99 04/14/18 11:30 97.8 F 04/14/18 11:28 94 H 98 04/14/18 11:23 98 H 98 04/14/18 11:18 92 H 99 04/14/18 11:13 92 H 99 04/14/18 11:08 90 97 04/14/18 11:03 91 H 99 04/14/18 10:58 99 H 98 04/14/18 10:53 89 99 04/14/18 10:48 85 99 04/14/18 10:43 96 H 100 04/14/18 10:38 89 99 04/14/18 10:33 94 H 98 04/14/18 10:29 96 H 121/63 04/14/18 10:28 102 H 98 04/14/18 10:25 105 H 122/63 04/14/18 10:23 104 H 98 04/14/18 10:21 109 H 125/61 04/14/18 10:18 98 H 99 04/14/18 10:17 108 H 144/63 04/14/18 10:10 129 H 99 Intake and Output 04/14/18 04/15/18 04/15/18 23:59 07:59 15:59 Intake Total 1705.667 240 Output Total 950 700 100 Balance 755.667 -700 140 Intake: IV 1705.667 PITOCin/NS 30 UNIT/500ML 5.667 30 units In 500 ml @ 2 MILLIUNITS/MIN 2 mls/hr IV TITR DON Rx#:[id number] Oral 240 Output: Urine 950 700 100 Indwelling Catheter 400 700 100 Uretheral ([place]) 200 Other: Total, Intake Amount 240 Total, Output Amount 400 700 100 Estimated Blood Loss 900 - Exam Breasts: Present: normal Cardiovascular: Present: Regular rate, Normal S1, Normal S2, No murmurs Lungs: Present: Clear to auscultation, Normal air movement Abdomen: Present: normal appearance, soft, tenderness (as expected ), normal bowel sounds. Absent: distention Vulva: both: normal Uterus: Present: normal, firm, fundal height at umbilicus Extremities: Present: normal Deep Tendon Reflex Grade: Normal +2 Incision: Present: normal, dry, intact, dressed (Pressure dressing CDI) - Labs Labs: Abnormal lab results 04/15/18 Range/Units 09:06 Hgb 9.3 L D (10.1-14.3) gm/dl Hct 28.5 L D (30.3-42.9) %
[2018-04-15] MEDS: IBUPROFEN PO PRN ×2 (10:27→18:14)
[2018-04-15] MEDS: PRENATAL VITAMIN PO SCH (10:27)
[2018-04-15] MEDS: FEOSOL PO SCH (10:27)
[2018-04-15] MEDS: PERCOCET 5/325 PO PRN ×2 (12:39→21:10)
[2018-04-15] MEDS: VALTREX PO SCH ×2 (12:46→21:09)
[2018-04-16] MEDS: IBUPROFEN PO PRN ×4 (00:11→18:25)
[2018-04-16] MEDS: PERCOCET 5/325 PO PRN ×2 (05:53→21:58)
[2018-04-16] MEDS: FEOSOL PO SCH (10:11)
[2018-04-16] MEDS: VALTREX PO SCH ×2 (10:11→21:57)
[2018-04-16] MEDS: PRENATAL VITAMIN PO SCH (10:17)
--- NOTE | 2018-04-16 11:56 | Progress Note ---
Assessment and Plan A: POD #2 Asymptomatic Anemia P: Follow Routine Orders Continue FeSO4 as ordered Depo Provera 150mg IM prior to discharge D/C Home in the AM RTO in One Week Subjective - Subjective Date of service: 04/16/18 Principal diagnosis: POD#1 s/p Primary C/S Patient reports: appetite normal, voiding normally, pain well controlled, flatus, ambulating normally [place]: doing well, bottle feeding Objective - Vital Signs Latest vital signs: Vital Signs Temp Pulse Resp BP BP Pulse Ox 04/16/18 07:29 98.1 F 91 H 18 110/57 04/16/18 00:00 98.8 F 73 16 116/67 04/15/18 19:30 98.7 F 77 16 104/69 04/15/18 16:47 98.0 F 102 H 20 110/59 97 04/15/18 12:25 98.4 F 120 H 20 114/65 98 Intake and Output 04/15/18 04/16/18 04/16/18 22:59 06:59 14:59 Intake Total 540 360 Output Total 300 Balance 240 360 Intake: Oral 240 360 Intake, Free Water 300 Output: Urine 300 Indwelling Catheter 300 Other: Total, Intake Amount 240 360 Total, Output Amount 300 - Exam Breasts: Present: normal Cardiovascular: Present: Regular rate Lungs: Present: Clear to auscultation, Normal air movement Abdomen: Present: normal appearance, soft, normal bowel sounds Uterus: Present: normal, firm, fundal height below umbilicus Extremities: Present: normal Incision: Present: normal, dry, intact
--- NOTE | 2018-04-16 11:57 | Discharge Summary ---
Providers - Providers Date of Admission: 04/14/18 10:19 Date of discharge: 04/17/18 Attending physician: JULIANE RIGGS MD Primary care physician: JULIANE RIGGS MD Hospitalization Reason for admission: active labor Delivery: Procedure: primary low transverse Episiotomy: none Laceration: none Incision: normal, dry, intact Other procedures: none complications: none Discharge diagnosis: IUP at term delivered [place] baby: male Condition at discharge: Good Disposition: DC-01 TO HOME OR SELFCARE Plan - Provider Discharge Summary Activity: routine, no sex for 6 weeks, no heavy lifting 4 weeks, no strenuous exercise Diet: routine Instructions: routine Additional instructions: [] Smoking cessation referral if applicable(refer to patient education folder for contact #) [] Refer to [facility] Booklet Call your doctor immediately for: * Fever > 100.5 * Heavy vaginal bleeding ( >1 pad per hour) * Severe persistent headache * Shortness of breath * Reddened, hot, painful area to leg or breast * Drainage or odor from incision. * Keep incision clean and dry at all times and follow doctor's instructions rega rding bathing/showering - Follow up plan Follow up: JULIANE RIGGS MD [Primary Care Provider] - 7 Days
[2018-04-16] MEDS ORDERED: DEPO-PROVERA (CONTRACEPTION) IM ONE (12:00)
[2018-04-17] MEDS: IBUPROFEN PO PRN ×2 (00:20→06:27)
[2018-04-17] MEDS ORDERED: DEPO-PROVERA (CONTRACEPTION) IM ONE ×2 (06:00→11:15)
[2018-04-17] MEDS: PERCOCET 5/325 PO PRN (06:27)
[2018-04-17] MEDS: FEOSOL PO SCH (11:18)
[2018-04-17] MEDS: VALTREX PO SCH (11:18)
[2018-04-17] MEDS: PRENATAL VITAMIN PO SCH (11:18)
[2018-04-17 14:17] VITALS: BP 137/71
== END 2018-04-17 13:50 | disposition home or self-care (01) | DRG 787 ==
LOC: TRG 04:40 → LD 10:19 → OB 21:53
PROVIDERS: ADMIT Obstetrics & Gynecology; ATTEND Obstetrics & Gynecology
PROC: 10D00Z1 Extraction of Products of Conception, Low, Open Approach (ICD-10-PCS; principal; 2018-04-14)
PROC: 10H07YZ Insertion of Other Device into Products of Conception, Via Natural or Artificial Opening (ICD-10-PCS; 2018-04-14)
DX: O99.824 Streptococcus B carrier state complicating childbirth (principal); O98.52 Other viral diseases complicating childbirth; O99.02 Anemia complicating childbirth; D64.9 Anemia, unspecified; O76 Abnormality in fetal heart rate and rhythm complicating labor and delivery; O77.0 Labor and delivery complicated by meconium in amniotic fluid; B00.9 Herpesviral infection, unspecified; O69.81X0 Labor and delivery complicated by cord around neck, without compression, not applicable or unspecified; O62.1 Secondary uterine inertia; Z3A.40 40 weeks gestation of pregnancy; Z37.0 Single live birth; Z83.3 Family history of diabetes mellitus; Z82.49 Family history of ischemic heart disease and other diseases of the circulatory system; Z80.9 Family history of malignant neoplasm, unspecified
CPT/HCPCS: 36415; 85014; 85018; 85027; 86592; 86850; 86900; 86901; G0378; J0290; J1050; J1200; J1885; J2210; J2274; J2405; J2590; J2765; J3010; J7030; J7120

== ENCOUNTER 2021-07-16 18:29 | Emergency (ER) | payer OTHER ==
[2021-07-16] MEDS ORDERED: IBUPROFEN 800 MG TAB PO ONE (19:58)
[2021-07-16] MEDS ORDERED: CYCLOBENZAPRINE 10 MG TAB PO ONE (19:58)
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
[2021-07-16 22:25] VITALS: BP 127/64
== END 2021-07-16 23:25 | disposition home or self-care (01) ==
LOC: ED 18:29
DX: S13.4XXA Sprain of ligaments of cervical spine, initial encounter (principal); S49.91XA Unspecified injury of right shoulder and upper arm, initial encounter; S39.92XA Unspecified injury of lower back, initial encounter; S99.922A Unspecified injury of left foot, initial encounter; V89.2XXA Person injured in unspecified motor-vehicle accident, traffic, initial encounter; Y93.89 Activity, other specified; Y92.89 Other specified places as the place of occurrence of the external cause; Y99.8 Other external cause status
CPT/HCPCS: 72040; 72100; 99283